=== PATIENT | male | born 1985 ===

== ENCOUNTER 2019-09-07 10:20 | Emergency (ER) | payer OTHER, MEDICAID ==
[2019-09-07] MEDS ORDERED: Lidocaine 1% 20 ML MDV INFILT ONE (10:21)
[2019-09-07] MEDS ORDERED: Diphtheria,Pertussis(Acell),Tetanus Vaccine 0.5 ML SDV IM ONE (11:10)
--- NOTE | 2019-09-07 11:11 | EDM.PDOC ---
ED HPI GENERAL MEDICAL PROBLEM - General Chief Complaint: Laceration Stated Complaint: CUT LEFT FINGER Time Seen by Provider: 09/07/19 10:40 Source of Information: Reports: Patient History Limitations: Reports: No Limitations - History of Present Illness INITIAL COMMENTS - FREE TEXT/NARRATIVE: Patient presented to the ED because he smahed his left index finger in between 2 metals. He sustained a 2 cm laceration over the medial aspesct of the left index finger. He is able to extend and flex his left index finger but with pain. - Related Data Allergies Allergy/AdvReac Type Severity Reaction Status Date / Time No Known Allergies Allergy Verified 09/07/19 10:29 Past Medical History - Past Health History Medical/Surgical History: Denies Medical/Surgical History HEENT History: Reports: None Cardiovascular History: Reports: None Respiratory History: Reports: None Gastrointestinal History: Reports: None Genitourinary History: Reports: None Musculoskeletal History: Reports: None Neurological History: Reports: None Psychiatric History: Reports: None Endocrine/Metabolic History: Reports: None Hematologic History: Reports: None Immunologic History: Reports: None Oncologic (Cancer) History: Reports: None - Infectious Disease History Infectious Disease History: Reports: None - Past Surgical History Head Surgeries/Procedures: Reports: None Social & Family History - Tobacco Use Smoking Status *Q: Current Every Day Smoker Years of Tobacco use: 10 Packs/Tins Daily: 0.7 - Caffeine Use Caffeine Use: Reports: Coffee - Recreational Drug Use Recreational Drug Use: No ED ROS GENERAL - Review of Systems Review Of Systems: See Below Constitutional: Reports: No Symptoms HEENT: Reports: No Symptoms Respiratory: Reports: No Symptoms Cardiovascular: Reports: No Symptoms Endocrine: Reports: No Symptoms GI/Abdominal: Reports: No Symptoms : Reports: No Symptoms Musculoskeletal: Reports: No Symptoms Skin: Reports: Wound Neurological: Reports: No Symptoms ED EXAM, SKIN/RASH Exam: See Below Exam Limited By: No Limitations General Appearance: Alert, No Apparent Distress Eye Exam: Bilateral Eye: PERRL Ears: Normal External Exam, Normal Canal Nose: Normal Inspection Throat/Mouth: Normal Inspection Head: Atraumatic Neck: Normal Inspection Respiratory/Chest: No Respiratory Distress Cardiovascular: Normal Peripheral Pulses GI/Abdominal: Normal Bowel Sounds, Soft, Non-Tender Back Exam: Normal Inspection, Full Range of Motion ED SKIN PROCEDURES - Laceration/Wound Repair Left Upper Digit - 2nd (Index) Appearance: Irregular, Clean Anesthetic Type: Local Local Anesthesia - Lidocaine (Xylocaine): 1% Plain Local Anesthetic Volume: 3cc Skin Prep: Chlorhexidine (Hibiciens) Exploration/Debridement/Repair: Wound Explored Closed with: Sutures Lac/Wound length In cm: 2 Suture Size: 3-0 Suture Type: Nylon, Interrupted # of Sutures: 3 Course - Vital Signs Text/Narrative:: Tdap xray left index finger- Last Recorded V/S: Last Vital Signs Temp 36.9 C 09/07/19 10:30 Pulse 99 09/07/19 10:30 Resp 18 09/07/19 10:30 BP 113/80 09/07/19 10:30 Pulse Ox 96 09/07/19 10:30 - Orders/Labs/Meds Orders: Active Orders 24 hr Category Date Time Status Vaccines to be Administered [RC] PER UNIT ROUTINE Care 09/07/19 11:10 Ordered Meds: Medications Discontinued Medications Generic Name Dose Route Start Last Admin Trade Name Freq PRN Reason Stop Dose Admin Diphtheria/Tetanus/Acell Pertussis 0.5 ml 09/07/19 11:10 09/07/19 11:19 Adacel IM 09/07/19 11:11 0.5 ml .ONCE ONE Administration Departure - Departure Time of Disposition: 11:15 Disposition: Home, Self-Care 01 Condition: Good Clinical Impression: Finger laceration - Discharge Information Instructions: Laceration Care, Adult Referrals: Donald Bhatti MD [Primary Care Provider] - Forms: ED Department Discharge Additional Instructions: please read discharge instructions on laceration and wound care no need to apply an antibiotic ointment keep the wound dry without any cover when you're inside the house you may take ibuprofen 800 mg with tylenol 1000 mg every 8 hours as needed for pain removal of suture in 10 days Sepsis Event Note - Evaluation Sepsis Screening Result: No Definite Risk - Focused Exam Vital Signs: Vital Signs Temp Pulse Resp BP Pulse Ox 09/07/19 10:30 36.9 C 99 18 113/80 96 Date Exam was Performed: 09/07/19 Time Exam was Performed: 11:27 - My Orders Last 24 Hours: My Active Orders 09/07/19 11:10 Vaccines to be Administered [RC] PER UNIT ROUTINE - Assessment/Plan Last 24 Hours: My Active Orders 09/07/19 11:10 Vaccines to be Administered [RC] PER UNIT ROUTINE
--- NOTE | 2019-09-07 11:23 | CR ---
INDICATION: Crush injury, left index finger. LEFT SECOND FINGER: Three views of the left index finger reveal soft tissue swelling mostly about the proximal phalanx area and PIPJ. A fracture, dislocation, or other significant bone or joint abnormality, was not identified. MTDD
== END 2019-09-07 11:30 | disposition home or self-care (01) ==
LOC: FB.ED 10:20
DX: S61.211A Laceration without foreign body of left index finger without damage to nail, initial encounter (principal); Z23 Encounter for immunization; F17.210 Nicotine dependence, cigarettes, uncomplicated; W23.0XXA Caught, crushed, jammed, or pinched between moving objects, initial encounter
CPT/HCPCS: 12001; 73140-F1; 90471; 90715; 99283-25; J2001